=== PATIENT | male | born 1985 | race Hispanic/Latino ===

== ENCOUNTER 2023-09-19 08:57 | Emergency (ER) | payer SELFPAY ==
[2023-09-19] MEDS ORDERED: ASPIRIN 81 MG CHEWABLE TABLET ONE (09:40)
[2023-09-19 09:55] LABS: Absolute Basophils 0.1 K/uL (0-0.5); Absolute Eosinophils 0.4 K/uL (0-0.5); Absolute Lymphocytes (CBC) 2.1 K/uL (0.7-4.9); Absolute Monocytes 0.5 K/uL (0.1-1.3); Absolute Neutrophil 8.6 K/uL (1.8-8.0); Basophils % 0.6 % (0-1.3); Eosinophils % 3.5 % (0-4.4); Hematocrit 47.1 % (39.6-49.0); Hemoglobin 15.2 g/dL (13.6-17.9); Lymphocytes % 17.7 % (15.3-44.8); MCH 27.9 pg (27.0-35.0); MCHC 32.3 g/dL (32.0-36.0); MCV 86.2 fL (80-100); MPV 8.4 fL (7.6-11.3); Monocytes % 4.2 % (3.3-12.3); Platelets 420 thou/uL (152-406); RBC Red Blood Cell Count 5.46 M/uL (4.33-5.43); Red Cell Distribution Width 14.3 % (12.1-15.2)
[2023-09-19 10:13] LABS: ALT/SGPT 35 U/L (16-61); Albumin 4.1 g/dL (3.4-5.0); Alkaline Phosphatase 108 U/L (45-117); BUN Blood Urea Nitrogen 12 mg/dL (7-18); Bicarbonate 26 mEq/L (21-32); Bilirubin Direct 0.1 mg/dL (0-0.2); Bilirubin Indirect, Calculated 0.3 mg/dL (0.2-0.8); Bilirubin Total 0.4 mg/dL (0.2-1.0); Globulin 4.3 g/dL (2.3-3.5); Glomerular Filtration Rate 84 ml/min (=/>90); Glucose Level 103 mg/dL (74-106); NT PRO-BNP 14 pg/mL (<125); Protein, Total 8.4 g/dL (6.4-8.2); Sodium Level 138 mEq/L (136-145); Troponin High Sensitivity 9.1 pg/mL (<58.9)
[2023-09-19 10:14] LABS: AST/SGOT < 4 U/L (15-37)
[2023-09-19 10:32] LABS: PT Prothrombin Time 12.4 SECONDS (9.5-12.5); Protime INR 1.13
--- NOTE | 2023-09-19 11:29 | RAD REPORT ---
EXAM DESCRIPTION: Ralph Single View09/19/2023 10:30 am CLINICAL HISTORY: Shortness of breath COMPARISON: none FINDINGS: The lungs appear clear of acute infiltrate. The heart is normal size IMPRESSION: No acute abnormalities displayed
--- NOTE | 2023-09-19 11:29 | RAD REPORT ---
EXAM DESCRIPTION: CT - Chest For Pe Angio - 09/19/2023 11:14 am CLINICAL HISTORY: Shortness of breath COMPARISON: None. TECHNIQUE: Dynamically enhanced axial 3 mm thick images of the chest were obtained during administra tion of 100 mL Isovue 370 IV contrast. Coronal and oblique reconstruction images were generated and r eviewed. Exam utilizes a protocol for optimal evaluation of pulmonary arterial tree. Maximum intensity projections 3D imaging was utilized All CT scans are performed using dose optimization technique as appropriate and may include automated exposure control or mA/KV adjustment according to patient size. FINDINGS: A pulmonary embolus is not seen. Aortic root 4.4 centimeter A pleural effusion is not seen. A pericardial effusion is not seen. A lung consolidation is not present. IMPRESSION: Negative for a pulmonary embolism. The aortic root 4.4 centimeters. It is recommended that the patient have a followup imaging in 1 year for re-evaluation.
--- NOTE | 2023-09-19 12:47 | ER ---
Nurse's Notes [facility] Name: Carter Thurston Age: 38 yrs Sex: Male : 1985 Arrival Date: 09/19/2023 Time: 08:57 Bed 7 Private MD: Diagnosis: Elevated blood-pressure reading, without diagnosis of hypertension Presentation: 09/18 09:11 Chief complaint: Patient states: "I was at work and I was bending over doing something aa5 and I think I strained myself because I started feeling palpitations and a headache and it hasn't gone away". pt reports symptoms began 1 hr FINANCE MGR. 09:11 Coronavirus screen: At this time, the client does not indicate any symptoms associated aa5 with coronavirus-19. Ebola Screen: Patient denies travel to an Ebola-affected area in the 21 days before illness onset. Initial Sepsis Screen: Does the patient meet any 2 criteria? HR > 90 bpm. Does the patient have a suspected source of infection? No. Patient's initial sepsis screen is negative. Risk Assessment: Do you want to hurt yourself or someone else? Patient reports no desire to harm self or others. Onset of symptoms was September 19, 2023. 09:11 Acuity: TATY 2 aa5 09:11 Method Of Arrival: Ambulatory aa5 Triage Assessment: 09:15 Headache History: The patient has had previous headaches and this one is similar to rs5 previous episodes. General: Appears in no apparent distress. comfortable, Behavior is calm, cooperative. Pain: Complains of pain in head Pain currently is 3 out of 10 on a pain scale. Pain began 1 hour ago. Pain: Also complains of. Historical: - Allergies: 09:23 No Known Allergies; aa5 - Home Meds: 09:23 None [Active]; aa5 - PMHx: 09:23 None; aa5 - PSHx: 09:23 None; aa5 - Immunization history:: Adult Immunizations unknown. - Infectious Disease History:: Denies. - Social history:: Smoking status: Patient reports the use of cigarette tobacco products. Screenin:13 [facility] ED Fall Risk Assessment (Adult) History of falling in the last 3 months, rs5 including since admission No falls in past 3 months (0 pts) Confusion or Disorientation No (0 pts) Intoxicated or Sedated No (0 pts) Impaired Gait No (0 pts) Mobility Assist Device Used No (0 pt) Altered Elimination No (0 pt) Score/Fall Risk Level 0 - 2 = Low Risk Oriented to surroundings, Maintained a safe environment. Abuse screen: Denies threats or abuse. Nutritional screening: No deficits noted. Tuberculosis screening: No symptoms or risk factors identified. Assessment: 09:13 Neuro: Level of Consciousness is awake, alert, obeys commands, Oriented to person, rs5 place, time, situation. Cardiovascular: Patient's skin is warm and dry. Rhythm is regular. Cardiovascular: Reports palpitations, intermmintentley. Respiratory: Airway is patent Respiratory effort is even, unlabored, Respiratory pattern is regular, symmetrical. GI: Abdomen is round non-distended, Abd is soft and non tender X 4 quads. : No signs and/or symptoms were reported regarding the genitourinary system. EENT: No signs and/or symptoms were reported regarding the EENT system. Derm: Skin is intact, Skin is pink, warm \\T\\ dry. Musculoskeletal: Range of motion: intact in all extremities. 09:13 General: Appears in no apparent distress. uncomfortable, Behavior is calm, cooperative. rs5 Pain: Complains of pain in head Pain currently is 3 out of 10 on a pain scale. Quality of pain is described as aching, Is continuous. 10:15 Reassessment: Patient and/or family updated on plan of care and expected duration. Pain rs5 level reassessed. Patient is alert, oriented x 3, equal unlabored respirations, skin warm/dry/pink. Patient denies pain at this time. Patient states feeling better. 11:20 Reassessment: No changes from previously documented assessment. rs5 13:00 Cardiovascular: Denies palpitations, Rhythm is regular. rs5 Vital Signs: 09:11 BP 184 / 133; Pulse 102; Resp 18 S; Temp 98.5(O); Pulse Ox 97% on R/A; Weight 113.4 kg aa5 (R); Height 5 ft. 9 in. (R); 12:05 BP 168 / 105; Pulse 80; Resp 18; Pulse Ox 99% on R/A; rs5 13:00 BP 165 / 101; Pulse 84; Resp 18; Pulse Ox 99% on R/A; rs5 09:11 Body Mass Index 36.92 (113.40 kg, 175.26 cm) aa5 ED Course: 09:00 Patient arrived in ED. im 09:11 Arm band placed on. aa5 09:12 Georgette Spence MD is Attending Physician. gb1 09:12 Georgette Spence MD is Attending Physician. gb1 09:13 Patient has correct armband on for positive identification. Placed in gown. Bed in low rs5 position. Call light in reach. Side rails up X2. 09:13 No provider procedures requiring assistance completed. rs5 09:25 Triage completed. aa5 09:30 Inserted saline lock: 20 gauge in right antecubital area, using aseptic technique. db Blood collected. 09:33 Jessica Pulido, RN is Primary Nurse. db 10:32 XRAY Chest (1 view) In Process Unspecified. EDMS 11:16 CT Chest For PE Angio In Process Unspecified. EDMS 13:07 IV discontinued, intact, bleeding controlled, No redness/swelling at site. Pressure rs5 dressing applied. Administered Medications: 09:43 Drug: Aspirin PO Chewable Tablet 324 mg PO once; 81 mg tablets x 4 Route: PO; db 10:10 Follow up: Response: No adverse reaction rs5 Medication: 13:11 VIS not applicable for this client. rs5 Outcome: 12:46 Discharge ordered by . gb1 13:05 Discharged to home ambulatory, rs5 13:05 Condition: stable 13:07 Discharge instructions given to patient, family, Instructed on discharge instructions, rs5 follow up and referral plans. Demonstrated understanding of instructions, follow-up care, 13:15 Patient left the ED. rs5 Signatures: Dispatcher [employer] EDMS Kimberly Mullins, RN RN aa5 Jessica Pulido, RN RN Huber Mayer, RN RN rs5 Roxanne Prado im Georgette Spence MD MD gb1
--- NOTE | 2023-09-19 12:48 | EDPHYS ---
Physician Documentation [facility] Name: Carter Thurston Age: 38 yrs Sex: Male : 1985 Arrival Date: 09/19/2023 Time: 08:57 Bed 7 Private MD: ED Physician Georgette Spence HPI: 09/18 09:42 This 38 yrs old Black Male presents to ER via Ambulatory with complaints of High Blood gb1 Pressure, Headache, Palpitations. 09:42 Royce is a 38-year-old -Indian male was at work today and felt gb1 palpitations and broke out into a sweat. He also has slight headache at the same time. He denies any blurred vision. About 2 months ago he went to get a health card and they did tell him that his blood blood pressure was elevated. He takes no medications and has no primary care doctor. He denies any chest pain or shortness of breath.. Historical: - Allergies: 09:23 No Known Allergies; aa5 - Home Meds: 09:23 None [Active]; aa5 - PMHx: 09:23 None; aa5 - PSHx: 09:23 None; aa5 - Immunization history:: Adult Immunizations unknown. - Infectious Disease History:: Denies. - Social history:: Smoking status: Patient reports the use of cigarette tobacco products. Exam: 09:42 Constitutional: This is a well developed, well nourished patient who is awake, alert, gb1 and in no acute distress. Head/Face: Normocephalic, atraumatic. Eyes: Pupils equal round and reactive to light, extra-ocular motions intact. Lids and lashes normal. Conjunctiva and sclera are non-icteric and not injected. Cornea within normal limits. Periorbital areas with no swelling, redness, or edema. ENT: Nares patent. No nasal discharge, no septal abnormalities noted. Tympanic membranes are normal and external auditory canals are clear. Oropharynx with no redness, swelling, or masses, exudates, or evidence of obstruction, uvula midline. Mucous membranes moist. Neck: Trachea midline, no thyromegaly or masses palpated, and no cervical lymphadenopathy. Supple, full range of motion without nuchal rigidity, or vertebral point tenderness. No Meningismus. Chest/axilla: Normal chest wall appearance and motion. Nontender with no deformity. No lesions are appreciated. Cardiovascular: Tachycardia, and rhythm with a normal S1 and S2. No gallops, murmurs, or rubs. Normal PMI, no JVD. No pulse deficits. Respiratory: Lungs have equal breath sounds bilaterally, clear to auscultation and percussion. No rales, rhonchi or wheezes noted. No increased work of breathing, no retractions or nasal flaring. Abdomen/GI: Soft, non-tender, with normal bowel sounds. No distension or tympany. No guarding or rebound. No evidence of tenderness throughout. Back: No spinal tenderness. No costovertebral tenderness. Full range of motion. Skin: Warm, dry with normal turgor. Normal color with no rashes, no lesions, and no evidence of cellulitis. MS/ Extremity: Pulses equal, no cyanosis. Neurovascular intact. Full, normal range of motion. Psych: Awake, alert, with orientation to person, place and time. Behavior, mood, and affect are within normal limits. Vital Signs: 09:11 BP 184 / 133; Pulse 102; Resp 18 S; Temp 98.5(O); Pulse Ox 97% on R/A; Weight 113.4 kg aa5 (R); Height 5 ft. 9 in. (R); 12:05 BP 168 / 105; Pulse 80; Resp 18; Pulse Ox 99% on R/A; rs5 13:00 BP 165 / 101; Pulse 84; Resp 18; Pulse Ox 99% on R/A; rs5 09:11 Body Mass Index 36.92 (113.40 kg, 175.26 cm) aa5 MDM: 09:13 Patient medically screened. gb1 09:42 Differential diagnosis: hypertensive crisis, CVA, intracerebral hemorrhage. gb1 12:49 Data reviewed: nurses notes. ED course: Mr. Thurston is a 38-year-old male gb1 with no medical problems diagnosed currently. He takes no medications at this time. He presents today with elevated blood pressures and the concern for hypertensive urgency versus emergency. At this time he has an elevated risk for acute coronary syndrome, PE, pneumonia versus AAA. His labs came back mostly normal but he does need a full outpatient evaluation for uncontrolled blood pressure. His CT angiogram of the chest resulted in a 4.4 cm aortic root dilation. I recommended the patient follow the radiologist recommendations for repeat imaging in 1 year. I counseled him on the importance of establishing primary care and being evaluated with a blood pressure log to track his home blood pressure readings. 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 Patient is currently asymptomatic is a blood pressure at 145/88 and is clinically improved. I will discharge him home to my instructions to which he is compliant with prior to discharge today.. 09/18 09:32 Order name: Basic Metabolic Panel; Complete Time: 10:34 gb1 09/18 09:32 Order name: CBC with Diff; Complete Time: 10:34 gb09/18 09:32 Order name: D-Dimer; Complete Time: 10:34 gb09/18 09:32 Order name: LFT's; Complete Time: 10:34 gb1 09/18 09:32 Order name: NT PRO-BNP; Complete Time: 10:34 gb1 09/18 09:32 Order name: PT-INR; Complete Time: 10:34 gb1 09/18 09:32 Order name: Troponin HS; Complete Time: 10:34 gb1 09/18 09:32 Order name: XRAY Chest (1 view); Complete Time: 11:57 gb1 09/18 10:37 Order name: CT Chest For PE Angio; Complete Time: 11:57 gb1 09/18 09:32 Order name: Cardiac monitoring; Complete Time: 09:39 gb1 09/18 09:32 Order name: EKG - Nurse/Tech; Complete Time: 09:39 gb1 09/18 09:32 Order name: IV Saline Lock; Complete Time: 09:39 gb1 09/18 09:32 Order name: Labs collected and sent; Complete Time: 09:39 gb1 09/18 09:32 Order name: O2 Per Protocol; Complete Time: 09:39 gb1 09/18 09:32 Order name: O2 Sat Monitoring; Complete Time: 09:39 gb1 Administered Medications: 09:43 Drug: Aspirin PO Chewable Tablet 324 mg PO once; 81 mg tablets x 4 Route: PO; db 10:10 Follow up: Response: No adverse reaction rs5 Disposition Summary: 09/19/23 12:46 Discharge Ordered Notes: Location: Home gb1 Problem: new gb1 Symptoms: have improved gb1 Condition: Stable gb1 Diagnosis - Elevated blood-pressure reading, without diagnosis of hypertension gb1 Followup: gb1 - With: Private Physician - When: - Reason: Further diagnostic work-up Discharge Instructions: - Discharge Summary Sheet db - Hypertension, Adult gb1 - DASH Eating Plan gb1 Forms: - Work release form db - Medication Reconciliation Form gb1 - Antibiotic Education gb1 - Prescription Opioid Use gb1 - Patient Portal Instructions gb1 - Leadership Thank You Letter gb1 Signatures: Dispatcher [employer] EDMS Kimberly Mullins, RN RN aa5 Jessica Pulido RN RN db Georgette Spence MD MD gb1 Huber Castañeda RN rs5 Corrections: (The following items were deleted from the chart) 10:37 10:37 Chest For PE Angio+[id number].[email or web address].BRZ ordered. EDMS EDMS
[2023-09-19 13:37] VITALS: BP 165/101; TEMP 98.5; O2SAT 99
--- NOTE | 2023-09-20 14:02 | EKG ---
Test Date: 2023-09-19 Test Time: 09:24:08 Lead Embedded Software Engineer: JIM MEASUREMENT RESULTS: Intervals: Rate: 94 [place]: 150 QRSD: 78 QT: 332 QTc: 415 [place]: P: 48 [place]: 150 QRS: 72 T: 22 INTERPRETIVE STATEMENTS: Normal sinus rhythm Nonspecific T wave abnormality Abnormal ECG No previous ECG available for comparison Electronically Signed On 09-20-23 13:58:53 CDT by Lino Farris
== END 2023-09-19 13:15 | disposition home or self-care (01) ==
LOC: ER 08:57
DX: R03.0 Elevated blood-pressure reading, without diagnosis of hypertension (principal)
CPT/HCPCS: 36415; 71045; 71275; 80048; 80076; 83880; 84484; 85025; 85379; 85610; 93005; 99284; Q9967